=== PATIENT | male | born 1995 | race Caucasian/White ===

== ENCOUNTER 2024-06-24 17:43 | Emergency (ER) | payer SELFPAY ==
[2024-06-24 19:00] VITALS: BP 108/51; PULSE 73; RESP 20; TEMP 36.4; O2SAT 99; BMI 26.6
--- NOTE | 2024-06-24 19:01 | EXP.UTC ---
Discharge Plan Disposition Patient Disposition: Home, Self-Care Condition: Good Prescriptions Prescriptions: New ciprofloxacin HCl [Cipro] 500 mg tablet 500 mg PO BID 10 Days Qty: 20 0RF ondansetron 4 mg Tablet,Disintegrating 4 mg PO Q8H PRN (Reason: Nausea) Qty: 12 0RF Referrals Follow up/Referrals: Provider,Referral, [Primary Care Provider] - See instructions Activity Restrictions/Add. Instructions Additional Instructions/Restrictions: Drink plenty of fluids. Take the medications as directed. Follow up with your regular doctor. Go to the er for any worsening or continued abdominal pain or other symptoms. GO TO THE ER FOR ANY WORSENING SYMPTOMS Clinical Impressions Clinical Impression: Colitis, Abdominal pain Instructions Patient Instructions: DI for Abdominal Pain-Adult, Ciprofloxacin, DI for Colitis Print Language Print Language: Khmer Discharge ED Provider: Tyrone Cueto [facility] [place] HPI General Stated complaint: painful urination, lower abdominal pain Time Seen by Provider: 06/24/24 19:01 History of Present Illness Provider Complaint: He states that for the past 1 week he has had dysuria and tenderness over his lower abdomen Related Data Previous Rx's ?Medication ?Instructions ?Recorded ciprofloxacin HCl 500 mg tablet 500 mg PO BID 10 days #20 tabs 06/24/24 (Cipro) ondansetron 4 mg disintegrating 4 mg PO Q8H PRN Nausea #12 tabs 06/24/24 tablet Allergies Allergy/AdvReac Type Severity Reaction Status Date / Time No Known Allergies Allergy Verified 06/24/24 19:02 [facility] Disclaimer: The information contained in this section may have been updated after the patient was seen, as this information can be updated by other users. Social History Smoking Status: Never smoker alcohol intake: never current occupational status: employed Travel in the last 8 weeks: None ROS Obtained: Yes All systems reviewed & no additional complaints except as documented Constitutional Constitutional: Denies chills, Denies fever(s) and Reports poor appetite ENT Ears, Nose, Mouth, and Throat: Denies dizziness and Denies sore throat Cardiovascular Cardiovascular: Denies dyspnea Respiratory Respiratory: Denies chest congestion, Denies cough and Denies dyspnea Gastrointestinal Gastrointestingal: Reports as per HPI Musculoskeletal Musculoskeletal: Denies arthralgias Integumentary/Breasts Skin/Breast: Denies rash Neurologic Neurologic: Denies dizziness Physical Exam General General appearance: alert and in no apparent distress Head Head exam: atraumatic and normocephalic Eye Eye exam: Present normal appearance, PERRL and EOMI ENT ENT exam: Present normal exam, normal oropharynx, mucous membranes moist, TM's normal bilaterally and normal external ear exam Neck Neck exam: Present normal inspection, full ROM and trachea midline; Absent tenderness, meningismus or lymphadenopathy Chest Chest inspection: Present normal inspection and symmetric chest wall rise; Absent tenderness, rash or abscess Respiratory Respiratory exam: Present normal lung sounds bilaterally; Absent respiratory distress, wheezes or stridor Cardiovascular Cardiovascular exam: Present regular rate and normal rhythm; Absent irregular rhythm, systolic murmur, diastolic murmur or JVD Abdominal Exam Abdominal exam: Present soft and normal bowel sounds; Absent distention, tenderness, guarding, rebound, rigidity, psoas sign, obturator sign, heel tap sign, Gutierrez's sign, Rovsing's sign or tenderness at McBurney's Point Extremities Exam Extremities exam: Present normal inspection and full ROM; Absent tenderness Back Exam Back exam: Present normal inspection and full ROM; Absent tenderness, CVA tenderness (R) or CVA tenderness (L) Neurological Exam Neurological exam: Present alert, oriented X3 and CN II-XII intact Psychiatric Psychiatric exam: Present normal affect and normal mood Skin Skin exam: Present warm, dry, intact and normal color Lymphatic Lymphatic Findings: no adenopathy Medical Decision Making Medical Records Medical records reviewed: No I reviewed the patient's medical records. Screening: Per USPSTF and CDC recommendations, given the prevalence of disease in our region, it is our hospital?s policy to screen for HIV and viral Hepatitis for all patients aged 18 and over and those with ongoing risk factors. Theron Inquiry Pt receiving controlled substance: No Lab Data Lab results reviewed: Yes I reviewed the patient's lab results. 06/24/24 19:41 06/24/24 19:41
[2024-06-24 19:06] LABS: Apearance,Urine Clear (Clear); Color,Urine Yellow (Yellow); Protein,Urine Negative (Negative)
[2024-06-24 19:08] LABS: Glucose,Urine (UA) Negative (Negative); Ketones,Urine Negative (Negative)
[2024-06-24 19:09] LABS: Bilirubin,Urine Negative (Negative); Blood, Urine Negative (Negative); UTC Leukocyte Esterase,Urine Negative (Negative); UTC Nitrate,Urine Negative (Negative); Urobilinogen,Urine 1 EU/dl (0.2)
--- NOTE | 2024-06-24 19:32 | XR_ITS ---
PROCEDURE INFORMATION: Exam: XR Abdomen Exam date and time: 06/24/2024 7:27 PM Age: 28 years old Clinical indication: Abdominal pain; Additional info: Lower abdomen pain TECHNIQUE: Imaging protocol: Radiologic exam of the abdomen. Views: Frontal supine view of the abdomen. 1 View. Total images: 2 COMPARISON: No relevant prior studies available. FINDINGS: Gastrointestinal tract: Nonspecific, nonobstructive bowel gas distribution. No disproportionately dilated bowel segments. Mild colonic stool burden. Organs: No organomegaly or pathologic calcifications. Bones/joints: Unremarkable. Soft tissues: Peritoneal fascial planes are maintained. IMPRESSION: Negative abdominal radiograph.
[2024-06-24 19:54] LABS: Basophils % 0.4 % (0.1-2.0); Eosinophils # 0.1 K/mm3 (0.0-0.4); Eosinophils % 0.6 % (0.1-12.0); Hematocrit 38.6 % (42.0-52.0); Hemoglobin 13.5 g/dL (14.1-18.0); Lymphocytes # 1.3 K/mm3 (0.7-4.5); Mean Corpuscular Hemoglobin 30.3 pg (27.0-31.2); Mean Corpuscular Volume 86.5 fl (80-94); Monocytes # 1.2 K/mm3 (0.1-1.0); Monocytes % 11.2 % (1.7-9.3); Neutrophils # 7.9 K/mm3 (1.8-7.8); Neutrophils % 75.5 % (37.0-80.0); Platelet Count 352 K/mm3 (142-424); Red Blood Count 4.46 M/mm3 (4.60-6.20); Red Cell Distribution Width 12.2 % (11.5-17.5); White Blood Count 10.5 K/mm3 (4.8-10.8)
[2024-06-24 20:21] LABS: Albumin Level 4.4 g/dl (3.5-5.0); Chloride 102 mmol/L (98-107); Potassium 3.9 mmoL/L (3.5-5.1); Sodium 134 mmol/L (136-145)
[2024-06-24 20:24] LABS: Alanine Aminotransferase 48 U/L (12-78); Albumin/Globulin Ratio 1.6 (1.1-1.8); Alkaline Phosphatase 105 U/L (38-126); Anion Gap 11.9 mEq/L (5-15); Aspartate Amino Transferase 37 U/L (17-59); Blood Urea Nitrogen 9 mg/dl (9-20); Carbon Dioxide 24 mmol/L (22.0-30.0); Creatinine Clearance Estimated 150 mL/min (50-200); Estimated Glomerular Filt Rate 115 ml/min (>60); GFR (African American) 139 ML/MIN (>60); Globulin 2.8 g/dL (1.3-3.2); Total Protein,Serum 7.2 g/dl (6.3-8.2)
[2024-06-24 20:25] LABS: Calcium 9.2 mg/dl (8.4-10.2); Glucose 92 mg/dl (74-100)
[2024-06-24 20:44] VITALS: BP 108/51; PULSE 73; RESP 20; TEMP 36.4
== END 2024-06-24 20:52 | disposition home or self-care (01) ==
PROVIDERS: Emergency Provider Nurse Practitioner Family
DX: K51.90 Ulcerative colitis, unspecified, without complications (principal)
CPT/HCPCS: 74018; 80053; 81003; 85025; 87086; 99213; G0381